=== PATIENT | female | born 1935 | race Caucasian/White ===

== ENCOUNTER → 2016-09-28 | Outpatient (CLI) | payer MEDICARE ==
--- NOTE | 2016-09-28 13:57 | MM ---
Reason for exam: additional evaluation requested from prior study. Last mammogram was performed 1 year ago. History: Patient is postmenopausal, has history of breast cancer at age 74, had previous chest radiation therapy at age 73, and has history of endometrial cancer at age 58. Family history of breast cancer in paternal aunt at age 80 and breast cancer in sister at age 60. Lumpectomy of the right breast, November 09, 2009. Malignant right breast US guided needle local of the right breast, October 23, 2009. Cancelled Right Mammotome of the right breast, October 19, 2009. Radiation therapy of the right breast, 2009. Took hormonal contraceptives for 5 years beginning at age 28. Took estrogen for 15 years. Took progesterone for 15 years. Taking antineoplastic for 6 months beginning at age 75. Physical Findings: Nurse did not find any significant physical abnormalities on exam. MG Diagnostic Mammo w CAD [facility] Bilateral CC and MLO view(s) were taken. XCCL and XCCM view(s) were taken of the right breast. LM view(s) were taken of the left breast. Prior study comparison: September 28, 2015, bilateral MG diagnostic mammo w CAD [facility]. September 26, 2014, bilateral MG diagnostic mammo w CAD [facility]. September 25, 2013, bilateral MG diagnostic mammo w CAD [facility]. The breast tissue is heterogeneously dense. This may lower the sensitivity of mammography. Finding #1: Architectural distortion in the right breast consistent with known lumpectomy. Finding #2: There are typically benign vascular, round calcifications in both breasts. There is no dominant lesion. Asymmetric breast tissue in the left posterior position. These results were verbally communicated with the patient and result sheet given to the patient on 09/28/16. ASSESSMENT: Benign, BI-RAD 2 RECOMMENDATION: Follow-up diagnostic mammogram of both breasts in 1 year.
== END | disposition home or self-care (01) ==
LOC: RADMAMWWP 12:52
PROVIDERS: ATTEND Radiology Diagnostic Radiology
DX: Z08 Encounter for follow-up examination after completed treatment for malignant neoplasm (principal); Z85.3 Personal history of malignant neoplasm of breast

== ENCOUNTER → 2016-11-01 | Outpatient (CLI) | payer MEDICARE ==
--- NOTE | 2016-11-03 13:38 | BD ---
EXAMINATION TYPE: MG DEXA axial skeleton. DATE OF EXAM: 11/01/2016 COMPARISON: NONE CLINICAL HISTORY: Z78.0 ASYMTOMATIC MENOPAUSAL STATE Height: 64.2 IN Weight: 144 LBS FRAX RISK QUESTIONS: Alcohol (3 or more units per day): NO Family History (Parent hip fracture): NO Glucocorticoids (More than 3mos): NO (Ex: prednisone, prednisolone, methylprednisolone, dexamethasone, and hydrocortisone). History of Fracture in Adulthood: NO Secondary Osteoporosis: 1. Type 1 Diabetes: NO 2. Hyperthyroidism: NO 3. Menopause before 45: NO 4. Malnutrition: NO 5. Chronic liver disease: NO Rheumatoid Arthritis: NO Current Tobacco Use: NO RISK FACTORS HISTORY OF: Postmenopausal woman: AGE 54 Take estrogen and/or progesterone medications: NOT NOW How long: AGE 54- 64 MEDICATIONS: Prednisone or other steroids: PT IS TAKING A 7 DAY DOSE PACK OF PREDNISONE. PT HAS 3 DAYS LEFT. Osteoporosis Medications: NOT NOW Which medication: Fosamax How Lon YEAR Additional Medications: PREDNISONE DOSE PACK,ASPIRIN, SIMVASTATIN, RANITIDINE, IMDUR, ATENOLOL, D3NIA CINE, ZERTEC, Additional History: BREAST CANCER WITH RADIATION EXAM MEASUREMENTS: Bone mineral densitometry was performed using the [employer]. Bone mineral density as measured about the Lumbar spine is: ----- L1-L4(G/cm2): 1.521 T Score Values are as follows: ----- L2: 2.7 ----- L3: 3.0 ----- L4: 2.9 ----- L1-L4: 2.8 Bone mineral density has: Increased 4.3% since study of: 09/22/2011 Bone mineral density about the R hip (g/cm2): 0.923 Bone mineral density about the L hip (g/cm2): 0.976 T Score values are as follows: -----R Neck: -0.8 -----L Neck: -0.4 -----R Total: -1.2 -----L Total: -1.2 Bone mineral density has: Decreased -0.5% since study of: 09/22/2011 IMPRESSION: Osteopenia about the bilateral femoral as such there is increased fracture risk. NOTE: T-SCORE=SD OF THE YOUNG ADULT MEAN.
== END | disposition home or self-care (01) ==
LOC: RADBDWWP 14:50
PROVIDERS: ATTEND Family Medicine
DX: M85.88 Other specified disorders of bone density and structure, other site (principal); Z78.0 Asymptomatic menopausal state
CPT/HCPCS: 77080

== ENCOUNTER → 2017-11-24 | Outpatient (CLI) | payer MEDICARE ==
--- NOTE | 2017-11-24 11:17 | MM ---
Reason for exam: additional evaluation requested from prior study. Last mammogram was performed 1 year and 2 months ago. History: Patient is postmenopausal, has history of breast cancer at age 74, had previous chest radiation therapy at age 73, and has history of endometrial cancer at age 58. Family history of breast cancer in paternal aunt at age 80 and breast cancer in sister at age 60. Lumpectomy of the right breast, November 09, 2009. Malignant right breast US guided needle local of the right breast, October 23, 2009. Cancelled Right Mammotome of the right breast, October 19, 2009. Radiation therapy of the right breast, 2009. Took hormonal contraceptives for 5 years beginning at age 28. Took estrogen for 15 years. Took progesterone for 15 years. Taking antineoplastic for 6 months beginning at age 75. Physical Findings: Nurse did not find any significant physical abnormalities on exam. MG Diagnostic Mammo w CAD [facility] Bilateral CC and MLO view(s) were taken. Prior study comparison: September 28, 2016, bilateral MG diagnostic mammo w CAD [facility]. September 28, 2015, bilateral MG diagnostic mammo w CAD [facility]. The breast tissue is heterogeneously dense. This may lower the sensitivity of mammography. Post surgical changes in the right breast. No significant new findings when compared with previous films. These results were verbally communicated with the patient and result sheet given to the patient on 11/24/17. ASSESSMENT: Benign, BI-RAD 2 RECOMMENDATION: Routine screening mammogram of both breasts in 1 year.
== END | disposition home or self-care (01) ==
LOC: RADMAMWWP 09:14
PROVIDERS: ATTEND Internal Medicine Hematology & Oncology
DX: Z08 Encounter for follow-up examination after completed treatment for malignant neoplasm (principal); Z85.3 Personal history of malignant neoplasm of breast
CPT/HCPCS: 77066

== ENCOUNTER → 2020-07-23 | Outpatient (CLI) | payer MEDICARE ==
--- NOTE | 2020-08-03 13:18 | MM ---
Reason for exam: clinical finding. Last mammogram was performed 8 months ago. History: Patient is postmenopausal, has history of breast cancer at age 74, had previous chest radiation therapy at age 73, and has history of endometrial cancer at age 58. Family history of breast cancer in paternal aunt at age 80 and breast cancer in sister at age 60. Lumpectomy of the right breast, November 09, 2009. Malignant right breast US guided needle local of the right breast, October 23, 2009. Cancelled Right Mammotome of the right breast, October 19, 2009. Radiation therapy of the right breast, 2009. Took hormonal contraceptives for 5 years beginning at age 28. Took estrogen for 15 years. Took progesterone for 15 years. Taking antineoplastic for 6 months beginning at age 75. Physical Findings: Nurse did not find any significant physical abnormalities on exam. MG 3D Diag Mammo W/Cad RT CC and MLO view(s) were taken of the right breast. Prior study comparison: December 03, 2019, mammogram, performed at [facility]. November 28, 2018, mammogram, performed at [facility]. November 24, 2017, bilateral MG diagnostic mammo w CAD [facility]. September 28, 2016, bilateral MG diagnostic mammo w CAD [facility]. The breast tissue is heterogeneously dense. This may lower the sensitivity of mammography. Finding #1: Architectural distortion in the lower inner quadrant of the right breast. Finding #2: There are typically benign vascular, dystrophic, round calcifications in the right breast. There is no discrete abnormality. These results were verbally communicated with the patient and result sheet given to the patient on 08/03/20. ASSESSMENT: Benign, BI-RAD 2 RECOMMENDATION: Follow-up diagnostic mammogram of both breasts in 4 months. Back on schedule for November 2020. Manage on a clinical basis with regard to right pain.
== END | disposition home or self-care (01) ==
LOC: RADMAMWWP 13:54
PROVIDERS: ATTEND Internal Medicine Hematology & Oncology
DX: C50.311 Malignant neoplasm of lower-inner quadrant of right female breast (principal); N64.4 Mastodynia; Z17.0 Estrogen receptor positive status [ER+]
CPT/HCPCS: 77065; G0279; 77061

== ENCOUNTER → 2021-01-15 | Outpatient (CLI) | payer MEDICARE ==
--- NOTE | 2021-01-15 15:22 | MM ---
Reason for exam: follow-up at short interval from prior study. Last mammogram was performed 6 months ago. History: Patient is postmenopausal, has history of breast cancer at age 74, had previous chest radiation therapy at age 73, and has history of endometrial cancer at age 58. Family history of breast cancer in paternal aunt at age 80 and breast cancer in sister at age 60. Lumpectomy of the right breast, November 09, 2009. Malignant right breast US guided needle local of the right breast, October 23, 2009. Cancelled Right Mammotome of the right breast, October 19, 2009. Radiation therapy of the right breast, 2009. Took hormonal contraceptives for 5 years beginning at age 28. Took estrogen for 15 years. Took progesterone for 15 years. Taking antineoplastic for 2 years beginning at age 75. Physical Findings: Nurse did not find any significant physical abnormalities on exam. MG 3D Diag Mammo W/Cad [facility] Bilateral CC and MLO view(s) were taken. Prior study comparison: July 23, 2020, right breast MG 3d diag mammo w/cad RT. December 03, 2019, mammogram, performed at [facility]. There are scattered fibroglandular densities. There is no discrete abnormality. Post surgical changes right breast. No significant new findings when compared with previous films. These results were verbally communicated with the patient and result sheet given to the patient on 01/15/21. ASSESSMENT: Benign, BI-RAD 2 RECOMMENDATION: Routine screening mammogram of both breasts in 1 year. Manage on a clinical basis with regard to right upper outer quadrant pain.
== END | disposition home or self-care (01) ==
LOC: RADMAMWWP 14:05
PROVIDERS: ATTEND Family Medicine
DX: N64.89 Other specified disorders of breast (principal); Z85.3 Personal history of malignant neoplasm of breast; Z80.3 Family history of malignant neoplasm of breast; Z78.0 Asymptomatic menopausal state; Z92.3 Personal history of irradiation
CPT/HCPCS: 77066; G0279; 77062

== ENCOUNTER → 2022-01-17 | Outpatient (CLI) | payer MEDICARE ==
--- NOTE | 2022-01-17 13:53 | MM ---
Reason for Exam: Hx of breast cancer, conservation therapy. Last screening mammogram was performed 12 month(s) ago. Patient History: Menarche at age 11. First Full-Term at age 23. Left ovary removed at age 58. Right ovary removed at age 58. Hysterectomy at age 58. Postmenopausal. Breast cancer, right, age 74. Previous chest radiation therapy at age 73. Patient used Estrogen for 15 years. Patient used Progesterone for 15 years. Hormonal Contraceptives, starting at age 28 for 5 years. 11/09/2009, Lumpectomy on the Right side. 10/23/2009, Malignant Excisional Biopsy on the right side. 2009, Radiation Therapy on the right side. 10/19/2009, Cancelled Right Mammotome on the right side. Paternal aunt had breast cancer, age 80. Sister had breast cancer, age 60. Prior Study Comparison: 09/22/2011 Bilateral Diagnostic Mammogram, [facility]. 09/24/2012 Bilateral Diagnostic Mammogram, [facility]. 09/25/2013 Bilateral Diagnostic Mammogram, [facility]. 09/26/2014 Bilateral Diagnostic Mammogram, [facility]. 09/28/2015 Bilateral Diagnostic Mammogram, [facility]. 09/28/2016 Bilateral Diagnostic Mammogram, [facility]. 11/24/2017 Bilateral Diagnostic Mammogram, [facility]. 11/28/2018 Screening Mammogram, [facility]. 12/03/2019 Screening Mammogram, [facility]. 07/23/2020 Right Diagnostic Mammogram, [facility]. 01/15/2021 Bilateral Diagnostic Mammogram, [facility]. Tissue Density: The breast tissue is heterogeneously dense. This may lower the sensitivity of mammography. Findings: Analyzed By CAD. No new suspicious mass or cluster microcalcifications within both breasts. Benign vascular calcifications and dystrophic calcifications within both breasts. Postsurgical changes of the right breast. No significant change from prior exams. Overall Assessment: Benign, BI-RAD 2 Management: Screening Mammogram of both breasts in 1 year. A clinical breast exam by your physician is recommended on an annual basis and results should be correlated with mammographic findings. This exam should not preclude additional follow-up of suspicious palpable abnormalities. Results were given to the patient verbally at the time of exam. Electronically signed and approved by: Antoine Johnson D.O.
== END | disposition home or self-care (01) ==
LOC: RADMAMWWP 13:20
PROVIDERS: ATTEND Family Medicine
DX: Z85.3 Personal history of malignant neoplasm of breast (principal); Z92.3 Personal history of irradiation; Z78.0 Asymptomatic menopausal state; Z80.3 Family history of malignant neoplasm of breast; Z90.721 Acquired absence of ovaries, unilateral
CPT/HCPCS: 77066; G0279; 77062

== ENCOUNTER → 2023-01-25 | Outpatient (CLI) | payer MEDICARE ==
--- NOTE | 2023-01-25 11:40 | MM ---
Reason for Exam: Additional evaluation requested from prior study. Last screening mammogram was performed 12 month(s) ago. Patient History: Menarche at age 11. First Full-Term at age 23. Left ovary removed at age 58. Right ovary removed at age 58. Hysterectomy at age 58. Postmenopausal. Breast cancer, right, age 74. Previous chest radiation therapy at age 73. Patient used Estrogen for 15 years. Patient used Progesterone for 15 years. Hormonal Contraceptives, starting at age 28 for 5 years. 11/09/2009, Lumpectomy on the Right side. 10/23/2009, Malignant Excisional Biopsy on the right side. 2009, Radiation Therapy on the right side. 10/19/2009, Cancelled Right Mammotome on the right side. Paternal aunt had breast cancer, age 80. Sister had breast cancer, age 60. Prior Study Comparison: 11/24/2017 Bilateral Diagnostic Mammogram, [facility]. 11/28/2018 Screening Mammogram, [facility]. 12/03/2019 Screening Mammogram, [facility] 07/23/2020 Right Diagnostic Mammogram, [facility]. 01/15/2021 Bilateral Diagnostic Mammogram, [facility]. Tissue Density: The breast tissue is heterogeneously dense. This may lower the sensitivity of mammography. Findings: Analyzed By CAD. Pattern is stable. Distortion from prior surgery is on the right breast. Multiple benign appearing vascular and spherical calcifications are present. No suspicious groups of microcalcifications, spiculated or lobular masses, architectural distortion or other secondary signs of malignancy are mammographically apparent. Overall Assessment: Benign, BI-RAD 2 Management: Screening Mammogram of both breasts in 1 year. A negative mammogram report should not preclude additional follow up of suspicious palpable abnormalities. Patient should continue monthly self breast exam. A clinical breast exam by your physician is recommended on an annual basis and results should be correlated with mammographic findings. Electronically signed and approved by: Rylan Sotelo D.O. Radiologis
== END | disposition home or self-care (01) ==
LOC: RADMAMWWP 10:56
PROVIDERS: ATTEND Family Medicine
DX: R92.333 Mammographic heterogeneous density, bilateral breasts (principal); Z85.3 Personal history of malignant neoplasm of breast; Z78.0 Asymptomatic menopausal state; Z80.3 Family history of malignant neoplasm of breast
CPT/HCPCS: 77066; G0279; 77062